=== PATIENT | male | born 2000 | race American Indian/Alaskan Native ===

== ENCOUNTER 2022-06-29 18:39 | Emergency (ER) | payer SELFPAY ==
[2022-06-29] MEDS ORDERED: Lidocaine 1% PF 5 ML VIAL ONE (20:03)
== END 2022-06-29 21:04 | disposition home or self-care (01) ==
LOC: ERS 18:39
DX: S61.412A Laceration without foreign body of left hand, initial encounter (principal); W26.9XXA Contact with unspecified sharp object(s), initial encounter
CPT/HCPCS: 12001

== ENCOUNTER 2022-07-05 07:19 | Emergency (ER) | payer SELFPAY | END 2022-07-05 07:50 | disposition home or self-care (01) | LOC: ERS 07:19 | DX: S61.211A Laceration without foreign body of left index finger without damage to nail, initial encounter (principal); W26.9XXA Contact with unspecified sharp object(s), initial encounter ==